=== PATIENT | female | born 1990 | race Asian ===

== ENCOUNTER 2016-05-31 02:13 | Emergency (ER) | payer OTHER ==
[~2016-05-31] VITALS: Ht 152.4 cm; Wt 58.0 kg
[~2016-05-31 02:13] MED LIST: BEN25 PO; PRED20TA PO
[2016-05-31 02:16] VITALS: Ht 152.4 cm; Wt 58.0 kg
[2016-05-31] MEDS ORDERED: morphine 4 MG/ML VIAL IV STA (02:28)
[2016-05-31] MEDS ORDERED: ONDANSETRON 4 MG INJ IV STA (02:28)
[2016-05-31] MEDS ORDERED: LIDOCAINE/MYLANTA 40 ML BTL PO STA (02:28)
[2016-05-31] MEDS ORDERED: SOD CHLORIDE 0.9% 1,000 ML IV STA (02:28)
[2016-05-31] MEDS ORDERED: FAMOTIDINE 20 MG TAB PO STA (02:28)
[2016-05-31 02:30] VITALS: BP 132/86; PULSE 84; RESP 18
[2016-05-31 02:30] LABS: URINE BLOOD (Dip) POC 2+ (NEGATIVE)
[2016-05-31 02:46] LABS: ADD SCAN DIFF NO
[2016-05-31 02:49] LABS: BASOPHILS % 0.5 % (0.0-2.0); EOSINOPHILS # 0.1 10^3/ul (0.0-0.5); EOSINOPHILS % 1.5 % (0.0-7.0); HEMATOCRIT 40.2 % (37.0-47.0); HEMOGLOBIN 13.2 g/dl (12.0-16.0); LYMPHOCYTES # 3.3 10^3/ul (0.8-2.9); LYMPHOCYTES % 41.6 % (15.0-51.0); MEAN CORPUSCULAR HEMOGLOBIN 30.1 pg (29.0-33.0); MEAN CORPUSCULAR HGB CONC 32.8 g/dl (32.0-37.0); MEAN CORPUSCULAR VOLUME 91.6 fl (82.0-101.0); MONOCYTE # 0.6 10^3/ul (0.3-0.9); MONOCYTES % 7.7 % (0.0-11.0); NEUTROPHIL # 3.8 10^3/ul (1.6-7.5); NEUTROPHILS % 48.3 % (39.0-77.0); PLATELET COUNT 336 10^3/UL (140-415); RED BLOOD COUNT 4.39 10^6/ul (4.20-5.40); RED CELL DISTRIBUTION WIDTH 12.2 % (11.5-14.5); WHITE BLOOD COUNT 7.9 10^3/ul (4.8-10.8)
[2016-05-31 02:56] LABS: ALBUMIN 4.5 g/dl (3.3-4.9); POTASSIUM 3.4 mmol/L (3.5-5.1)
[2016-05-31 02:58] LABS: CREATININE 0.65 mg/dl (0.44-1.00)
[2016-05-31 02:59] LABS: ALBUMIN/GLOBULIN RATIO 1.25; BILIRUBIN,INDIRECT 0.3 mg/dl (0-1.1); BILIRUBIN,TOTAL 0.3 mg/dl (0.2-1.3); CALCIUM 9.3 mg/dl (8.4-10.2); TOTAL PROTEIN 8.1 g/dl (6.1-8.1)
[2016-05-31 03:42] LABS: ADD UMIC YES; URINE BILIRUBIN (Dip) NEGATIVE (NEGATIVE); URINE BLOOD (Dip) 2+ (NEGATIVE); URINE COLOR LT. YELLOW (YELLOW); URINE GLUCOSE (Dip) NEGATIVE (NEGATIVE); URINE KETONES (Dip) NEGATIVE (NEGATIVE); URINE LEUKOCYTE ESTERASE (Dip) 1+ (NEGATIVE); URINE NITRITE (Dip) NEGATIVE (NEGATIVE); URINE TOTAL PROTEIN (Dip) NEGATIVE (NEGATIVE); URINE UROBILINOGEN (Dip) 0.2 E.U./dL (0.1-1.0)
[2016-05-31] MEDS ORDERED: FAMO-18 PO (03:58)
[2016-05-31] MEDS ORDERED: METO10TA92 PO (03:58)
--- NOTE | 2016-05-31 04:03 | ERD ---
ER Documentation Chief Complaint Date/Time DATE: 05/31/16 TIME: 03:59 Chief Complaint epigstric pain w/ vomiting since 4 hours ago HPI 26-year-old female with a history of gastritis versus ulcer presenting to the ER with epigastric pain for the past 4 hours associated with nausea and vomiting. Pain started 1 hour after eating dinner. Is in the epigastrium, nonradiating, aching, burning, constant, nothing makes it better or worse. No associated fever, chills, diarrhea, dysuria. Last menstrual period was today. ROS All systems reviewed and are negative except as per history of present illness. Medications Home Meds Active Scripts Metoclopramide* (Reglan*) 10 Mg Tablet, 10 MG PO Q6 Y for NAUSEA AND/OR VOMITING , #10 TAB Prov:GARY KRUEGER MD 05/31/16 Famotidine* (Pepcid*) 20 Mg Tablet, 20 MG PO BID for 14 Days, #28 TAB Prov:GARY KRUEGER MD 05/31/16 Prednisone* (Prednisone*) 20 Mg Tab, 40 MG PO DAILY for 4 Days, TAB Prov:MARIA ESTHER MELGOZA P STAFF PSYCHIATRIST 11/13/15 Diphenhydramine Hcl* (Benadryl*) 25 Mg Cap, 25 MG PO Q6, #30 CAP Prov:MARIA ESTHER MELGOZA STAFF PSYCHIATRIST 11/13/15 Allergies Allergies: Coded Allergies: No Known Drug Allergies (Verified Allergy, Unknown, 11/12/15) PMhx/Soc History of Surgery: No Anesthesia Reaction: No Hx Neurological Disorder: No Hx Respiratory Disorders: No Hx Cardiac Disorders: No Hx Psychiatric Problems: No Hx Miscellaneous Medical Probl: No Hx Alcohol Use: No Hx Substance Use: No Hx Tobacco Use: No Smoking Status: Never smoker FmHx Family History: No diabetes Physical Exam Vitals Vital Signs Date Time Temp Pulse Resp B/P Pulse Ox O2 Delivery O2 Flow Rate FiO2 05/31/16 02:30 84 18 132/86 100 Room Air 05/31/16 02:16 98.1 73 20 142/84 99 Physical Exam Const: Nontoxic, well-nourished, mild distress secondary to pain Head: Atraumatic Eyes: Normal Conjunctiva ENT: Normal External Ears, Nose and Mouth. Neck: Full range of motion..~ No meningismus. Resp: Clear to auscultation bilaterally Cardio: Regular rate and rhythm, no murmurs Abd: Soft, mild epigastric tenderness, negative Villa's sign, negative McBurney's point tenderness, no rebound or guarding, non distended. Normal bowel sounds Skin: No petechiae or rashes Back: No midline or flank tenderness Ext: No cyanosis, or edema Neur: Awake and alert Psych: Normal Mood and Affect Result Diagram: 05/31/1623705/31/16237 Results 24 hrs Laboratory Tests Test 05/31/16 02:30 05/31/16 02:38 Urine Color LT. YELLOW Urine Clarity CLEAR Urine pH 6.5 Bedside Urine pH (LAB) 6.5 Urine Specific [place] <=1.005 Bedside Urine Protein (LAB) Negative Bedside Urine Glucose (UA) Negative Urine Ketones NEGATIVE Bedside Urine Ketones (LAB) Negative Bedside Urine Blood 2+ Urine Nitrite NEGATIVE Bedside Urine Nitrite (LAB) Negative Urine Bilirubin NEGATIVE Urine Urobilinogen 0.2 E.U./dL Urine Leukocyte Esterase 1+ Bedside Urine Leukocyte Esterase (L Trace Urine Microscopic RBC 2-5/HPF Urine Microscopic WBC 2-5/HPF Urine Squamous Epithelial Cells RARE Urine Hemoglobin 2+ Urine Glucose NEGATIVE% Urine Total Protein NEGATIVE White Blood Count 7.910^3/ul Red Blood Count 4.3910^6/ul Hemoglobin 13.2g/dl Hematocrit 40.2% Mean Corpuscular Volume 91.6fl Mean Corpuscular Hemoglobin 30.1pg Mean Corpuscular Hemoglobin Concent 32.8g/dl Red Cell Distribution Width 12.2% Platelet Count 61909^3/UL Mean Platelet Volume 9.0fl Neutrophils % 48.3% Lymphocytes % 41.6% Monocytes % 7.7% Eosinophils % 1.5% Basophils % 0.5% Nucleated Red Blood Cells % 0.0/100WBC Neutrophils # 3.810^3/ul Lymphocytes # 3.310^3/ul Monocytes # 0.610^3/ul Eosinophils # 0.110^3/ul Basophils # 0.010^3/ul Nucleated Red Blood Cells # 0.010^3/ul Sodium Level 141mmol/L Potassium Level 3.4mmol/L Chloride Level 103mmol/L Carbon Dioxide Level 26mmol/L Anion Gap 15 Blood Urea Nitrogen 15mg/dl Creatinine 0.65mg/dl Glucose Level 105mg/dl Calcium Level 9.3mg/dl Total Bilirubin 0.3mg/dl Direct Bilirubin 0.00mg/dl Indirect Bilirubin 0.3mg/dl Aspartate Amino Transf (AST/SGOT) 25IU/L Alanine Aminotransferase (ALT/SGPT) 26IU/L Alkaline Phosphatase 60IU/L Total Protein 8.1g/dl Albumin 4.5g/dl Globulin 3.60g/dl Albumin/Globulin Ratio 1.25 Lipase 147U/L Current Medications Medications (Trade) Dose Ordered Sig/Michael Route PRN Reason Start Time Stop Time Status Last Admin Dose Admin Sodium Chloride (NS) 1,000 ml @ 1,000 mls/hr Q1H STAT IV 05/31/16 02:28 05/31/16 03:27 DC 05/31/16 02:43 Morphine Sulfate (morphine) 4 mg ONCE STAT IV 05/31/16 02:28 05/31/16 02:35 DC 05/31/16 02:43 Ondansetron HCl (Zofran Inj) 4 mg ONCE STAT IV 05/31/16 02:28 05/31/16 02:35 DC 05/31/16 02:43 Famotidine (Pepcid) 20 mg ONCE STAT PO 05/31/16 02:28 05/31/16 02:35 DC 05/31/16 02:43 Miscellaneous Medication (Gi Cocktail (2)) 40 ml ONCE STAT PO 05/31/16 02:28 05/31/16 02:35 DC 05/31/16 02:43 Metoclopramide HCl (Reglan) 10 mg ONCE ONCE IV 05/31/16 04:30 05/31/16 04:31 DC 05/31/16 04:12 Acetaminophen/ Hydrocodone Bitart ([place] (5/325)) 1 tab ONCE ONCE PO 05/31/16 04:30 05/31/16 04:31 DC 05/31/16 04:12 Procedures/MDM Labs: CBC and CMP within normal limits, lipase normal, urine negative Patient is presenting with epigastric pain with nausea and vomiting. She is afebrile and vitals are stable. Differential includes but is not limited to biliary colic, biliary obstruction, acute cholecystitis, pancreatitis, hepatitis , lower lobe pneumonia, gastritis, colitis, cardiac pathology, aortic dissection , ureterolithiasis, pyelonephritis. Labs were ordered to evaluate for above and were normal. I will low suspicion for biliary etiology of her pain. I also have a low suspicion for pneumonia, colitis, bowel perforation. Imaging is not necessary at this time. Pain medications, Pepcid, GI cocktail were given with relief of her pain. Patient was able to tolerate fluids by mouth in the ED. I will discharge her with Pepcid and Reglan. Return precautions were discussed and she was urged to return for any worsening symptoms. I recommended she follow-up with her primary care doctor within the next 2 days and discuss possible referral for endoscopy as she has not had one before. Patient is agreeable with the plan. Departure Diagnosis: Primary Impression: Acute epigastric pain Additional Impression: Nausea & vomiting Vomiting type: unspecified Vomiting Intractability: unspecified Qualified Code: R11.2 - Nausea and vomiting, intractability of vomiting not specified, unspecified vomiting type Condition: Stable Patient Instructions: Gastritis Vs. Ulcer, Epigastric Pain (Uncertain Cause) GARY KRUEGER MD May 31, 2016 04:03
[2016-05-31 04:07] LABS: SQUAMOUS EPITHELIAL CELL,UR RARE
[2016-05-31] MEDS ORDERED: METOCLOPRAMIDE 10 MG INJ IV ONE (04:30)
[2016-05-31] MEDS ORDERED: HYDROCODONE/APAP (5/325) TAB PO ONE (04:30)
== END 2016-05-31 04:31 | disposition home or self-care (01) ==
LOC: E/R 02:13
DX: R10.13 Epigastric pain (principal); R11.2 Nausea with vomiting, unspecified
CPT/HCPCS: 80053; 81001; 83690; 85025; J2270; J2405; J2765; J7030; Z7610; 36415; 81003; 96374; 96375

== ENCOUNTER 2016-06-23 08:45 | Emergency (ER) | payer OTHER ==
[~2016-06-23] VITALS: Ht 157.5 cm; Wt 58.9 kg
[~2016-06-23 08:45] MED LIST changes: +FAMO-18 PO; +METO10TA92 PO
[2016-06-23 08:49] VITALS: Ht 157.5 cm; Wt 58.9 kg
[2016-06-23] MEDS ORDERED: BUPIVACAINE 0.25% (MPF) 10 ML 10 ML VIAL INJ ONE (09:30)
[2016-06-23] MEDS ORDERED: IBUP800T25 PO (10:15)
--- NOTE | 2016-06-23 10:23 | ERD ---
ER Documentation Chief Complaint Date/Time DATE: 06/23/16 TIME: 10:18 Chief Complaint back pain rad left leg, had same in 2012 HPI 26-year-old female complaining of pain in her left lower back since 2 AM this morning. Patient stated that she was bending over to put on her underwear, and felt a sharp "click" in the back. Pain is sharp and constant, worse with movement, better with rest. Denies saddle paresthesia. He denies bowel or bladder dysfunction. Denies falls. ROS All systems reviewed and are negative except as per history of present illness. Medications Home Meds Active Scripts Ibuprofen* (Motrin*) 800 Mg Tab, 800 MG PO Q8 Y for PAIN AND OR ELEVATED TEMP, # 30 TAB Prov:JOSÉ RODRÍGUEZ NP 06/23/16 Metoclopramide* (Reglan*) 10 Mg Tablet, 10 MG PO Q6 Y for NAUSEA AND/OR VOMITING , #10 TAB Prov:GARY KRUEGER MD 05/31/16 Famotidine* (Pepcid*) 20 Mg Tablet, 20 MG PO BID for 14 Days, #28 TAB Prov:GARY KRUEGER MD 05/31/16 Prednisone* (Prednisone*) 20 Mg Tab, 40 MG PO DAILY for 4 Days, TAB Prov:MARIA ESTHER MELGOZA SODA DIALYZER 11/13/15 Diphenhydramine Hcl* (Benadryl*) 25 Mg Cap, 25 MG PO Q6, #30 CAP Prov:MARIA ESTHER MELGOZA [employer] DIALYZER 11/13/15 Allergies Allergies: Coded Allergies: No Known Drug Allergies (Verified Allergy, Unknown, 11/12/15) PMhx/Soc History of Surgery: No Anesthesia Reaction: No Hx Neurological Disorder: No Hx Respiratory Disorders: No Hx Cardiac Disorders: No Hx Psychiatric Problems: No Hx Miscellaneous Medical Probl: No Hx Alcohol Use: No Hx Substance Use: No Hx Tobacco Use: No Physical Exam Vitals Vital Signs Date Time Temp Pulse Resp B/P Pulse Ox O2 Delivery O2 Flow Rate FiO2 06/23/16 08:49 898.2 90 18 120/54 99 Physical Exam General: Well-developed, well-nourished, conscious and coherent, in no distress Skin: Warm and dry without rash, good texture and turgor Head: Normocephalic without evidence of trauma Eyes: Sclera and conjunctivae normal; pupils equal, round, and reactive to light; extraocular movements are intact Neck: Supple without meningismus or adenopathy. Carotids are equal. Trachea midline. No bruits or JVD Chest: Normal AP diameter, good expansion without retractions. Nontender. Lungs are clear to auscultate bilaterally with good tidal volume Heart: Regular rate and rhythm. No murmur, rub, or gallop heard Abdomen: Soft and nontender without masses, guarding, or rebound. Bowel sounds are active. No hepatosplenomegaly Back: No contusions, ecchymosis, or abrasions are noted. Nontender without step-off or deformity to firm midline palpation. Point tenderness in the left gluteal region. No CVA tenderness or flank ecchymosis Extremities: Full range of motion. Good strength bilaterally. No clubbing, cyanosis, or edema. Peripheral pulses are intact. Sensation intact. No saddle paresthesia. Neuro: Alert and oriented. Mental status normal, speech clear. Cranial nerves grossly intact Results 24 hrs Current Medications Medications (Trade) Dose Ordered Sig/Michael Route PRN Reason Start Time Stop Time Status Last Admin Dose Admin Bupivacaine HCl (Marcaine 0.25% (Mpf) 10 ml) 10 ml ONCE ONCE INJ 06/23/16 09:30 06/23/16 09:31 DC Procedures/MDM Well-appearing 26-year-old female complaining of left lower back pain 1 day. Patient pain onset after she bending over, consistent with muscle strain. I doubt spinal fractures, subluxation, disc herniation, cauda equina syndrome, or spinal epidural abscess. Procedure note: Trigger point injection Trigger point injection performed by me. 10 mL of bupivacaine is injected into left gluteal region. Total number muscle groups injected: 1. Patient reports improvement of pain after the trigger point injection. Patient appears well, stable for discharge and outpatient management. Medical decision making shared with patient and family. Education provided to patient and family. Patient and family expressed understanding of the plan. Medications on discharge: Ibuprofen. Follow-up: Primary care provider in 2-3 days or return to ED if worse. Departure Diagnosis: Primary Impression: Low back strain Encounter type: initial encounter Qualified Code: S39.012A - Low back strain , initial encounter Condition: Stable Patient Instructions: Self-Care for Low Back Pain, Back Sprain/Strain Referrals: [facility] YOU HAVE RECEIVED A MEDICAL SCREENING EXAM AND THE RESULTS INDICATE THAT YOU DO NOT HAVE A CONDITION THAT REQUIRES URGENT TREATMENT IN THE EMERGENCY DEPARTMENT. FURTHER EVALUATION AND TREATMENT OF YOUR CONDITION CAN WAIT UNTIL YOU ARE SEEN IN YOUR DOCTORS OFFICE WITHIN THE NEXT 1-2 DAYS. IT IS YOUR RESPONSIBILITY TO MAKE AN APPOINTMENT FOR FOLOW-UP CARE. IF YOU HAVE A PRIMARY DOCTOR --you should call your primary doctor and schedule an appointment IF YOU DO NOT HAVE A PRIMARY DOCTOR YOU CAN CALL OUR PHYSICIAN REFERRAL HOTLINE AT IF YOU CAN NOT AFFORD TO SEE A PHYSICIAN YOU CAN CHOSE FROM THE FOLLOWING [facility] [address] [facility]. [facility] [address] [facility] [facility] [address] [facility] [facility] [address] [facility]. [facility] [address] [facility]. [facility]. [address] Additional Instructions: Call your primary care doctor TOMORROW for an appointment during the next 2-3 days.See the doctor sooner or return here if your condition worsens before your appointment time. I asked her PCP for physical therapy referral. JOSÉ RODRÍGUEZ NP June 23, 2016 10:23
== END 2016-06-23 10:30 | disposition home or self-care (01) ==
LOC: FTE 08:45
DX: S39.012A Strain of muscle, fascia and tendon of lower back, initial encounter (principal); X50.1XXA Overexertion from prolonged static or awkward postures, initial encounter; Y92.9 Unspecified place or not applicable
CPT/HCPCS: 20552; Z7502; Z7610